=== PATIENT | female | born 1950 | race Caucasian/White ===

== ENCOUNTER → 2017-08-11 15:08 | Outpatient (CLI) | payer MEDICARE, OTHER | END | disposition home or self-care (01) | LOC: D.US 15:08 | DX: R10.2 Pelvic and perineal pain (principal) ==

== ENCOUNTER 2019-01-28 08:00 | Outpatient (CLI) | payer MEDICARE, OTHER | END 2019-01-28 23:59 | disposition home or self-care (01) | LOC: D.MAMMO 08:00 | PROVIDERS: ATTEND Family Medicine | DX: Z12.31 Encounter for screening mammogram for malignant neoplasm of breast (principal) ==